=== PATIENT | male | born 1980 | race Caucasian/White ===

== ENCOUNTER 2023-10-13 00:33 | Day surgery (SDC) | payer BC ==
[2023-10-13] MEDS ORDERED: ONDANSETRON 4 MG/2 ML VIAL ONE (01:20)
[2023-10-13] MEDS ORDERED: KETOROLAC 30 MG/ML INJ ONE (01:20)
[2023-10-13] MEDS ORDERED: HALOPERIDOL LACT 5 MG/ML INJ ONE (01:21)
[2023-10-13] MEDS ORDERED: MORPHINE 4 MG/ML SYR ONE (01:21)
[2023-10-13] MEDS ORDERED: FAMOTIDINE 20 MG/2 ML VIAL IV ONE (01:21)
[2023-10-13] MEDS ORDERED: NA CHLORIDE 0.9% 1,000 ML ONE ×2 (01:21→05:01)
[2023-10-13 01:34] LABS: Absolute Basophils 0.1 K/uL (0-0.5); Absolute Lymphocytes (CBC) 1.4 K/uL (0.7-4.9); Absolute Monocytes 1.4 K/uL (0.1-1.3); Absolute Neutrophil 19.3 K/uL (1.8-8.0); Basophils % 0.3 % (0-1.3); Eosinophils % 0.2 % (0-4.4); Hematocrit 44.1 % (39.6-49.0); Hemoglobin 14.9 g/dL (13.6-17.9); Lymphocytes % 6.1 % (15.3-44.8); MCH 31.3 pg (27.0-35.0); MCHC 33.9 g/dL (32.0-36.0); MCV 92.5 fL (80-100); MPV 8.6 fL (7.6-11.3); Monocytes % 6.3 % (3.3-12.3); Neutrophils % 87.1 % (41.7-73.7); Platelets 290 thou/uL (152-406); RBC Red Blood Cell Count 4.77 M/uL (4.33-5.43); Red Cell Distribution Width 14.2 % (12.1-15.2)
[2023-10-13 01:44] LABS: Specific Gravity > 1.030 (1.005-1.030); Sqamous Epithelial <5 /HPF (None Seen); Urine Bacteria <20 /HPF (<20); Urine Bilirubin NEGATIVE (Negative); Urine Blood Negative (Negative); Urine Clarity Turbid (Clear); Urine Color Yellow (Yellow); Urine Culture Reflex Order NOT NEEDED; Urine Glucose NEGATIVE (Negative); Urine Ketones TRACE (Negative); Urine Microscopic Reflex YN ORDER UMIC; Urine Mucus 4+ /HPF (None Seen); Urine Nitrite NEGATIVE (Negative); Urine Protein 1+ (Negative); Urine RBC <5 /HPF (None Seen); Urine Urobilinogen Normal (Normal); Urine WBC <5 /HPF (<5)
[2023-10-13 01:55] LABS: Anion Gap 10.3 mEq/L (5.0-15.0); Globulin 4.1 g/dL (2.3-3.5); Potassium 3.3 mEq/L (3.5-5.1); Protein, Total 8.1 g/dL (6.4-8.2)
[2023-10-13 04:06] LABS: Band Neutrophils 9 % (0-1); Differential Total Cells Count 100; Lymphocytes 9 % (15-42); Monocytes 5 % (0-10); Reactive Lymphocytes 4 %; Segmented Neutrophils 73 % (40-80)
[2023-10-13 04:07] LABS: Blood Morphology Comment NOT SEEN (NOT SEEN); Platelet Estimate ADEQ
[2023-10-13] MEDS ORDERED: NA CHLORIDE 0.9% 50 ML ONE (05:01)
[2023-10-13] MEDS ORDERED: CEFTRIAXONE 1000 MG/VIAL ONE (05:01)
[2023-10-13] MEDS ORDERED: METRONIDAZOLE 500mg IVPB 500 MG/100 ML BAG IV ONE (05:01)
--- NOTE | 2023-10-13 05:14 | EDPHYS ---
Physician Documentation [facility] Name: Grant Johnston Age: 43 yrs Sex: Male : 1980 Arrival Date: 10/13/2023 Time: 00:33 Bed 7 Private MD: ED Physician Tavo Duenas HPI: 10/12 00:56 This 43 yrs old Male presents to ER via Ambulatory with complaints of sp4 Abdominal Pain. 05:05 Patient is 43-year-old male presents with acute right-sided abdominal pain associated sp4 with nausea.. Historical: - Allergies: 00:50 No Known Allergies; lg3 - Home Meds: 00:50 None [Active]; lg3 - PMHx: 00:50 shingles; lg3 - PSHx: 00:50 None; lg3 - Immunization history:: Adult Immunizations up to date. - Infectious Disease History:: Denies. - Social history:: Smoking status: Patient denies any tobacco usage or history of. Patient uses alcohol, only on a social basis. - Family history:: not pertinent. ROS: 05:05 Constitutional: Negative for fever, chills, and weight loss, Eyes: Negative for injury, sp4 pain, redness, and discharge, Abdomen/GI: Positive abdominal pain in the right side and positive nausea 05:05 All other systems are negative, Exam: 05:05 Constitutional: This is a well developed, well nourished patient who is awake, alert, sp4 and in no acute distress. Head/Face: Normocephalic, atraumatic. Eyes: Pupils equal round and reactive to light, extra-ocular motions intact. Lids and lashes normal. Conjunctiva and sclera are not injected. Cornea within normal limits. Periorbital areas with no swelling, redness, or edema. ENT: Nares patent. No nasal discharge, no septal abnormalities noted. Tympanic membranes are normal and external auditory canals are clear. Oropharynx with no redness, swelling, or masses, exudates, or evidence of obstruction, uvula midline. Mucous membranes moist. Neck: Trachea midline, no thyromegaly or masses palpated, and no cervical lymphadenopathy. Supple, full range of motion without nuchal rigidity, or vertebral point tenderness. Chest/axilla: Normal chest wall appearance and motion. Nontender with no deformity. No lesions are appreciated. Cardiovascular: Regular rate and rhythm with a normal S1 and S2. No gallops, murmurs, or rubs. Normal PMI, no JVD. No pulse deficits. Respiratory: Lungs have equal breath sounds bilaterally, clear to auscultation and percussion. No rales, rhonchi or wheezes noted. No increased work of breathing, no retractions or nasal flaring. Abdomen/GI: Soft, with normal bowel sounds. No distension or tympany. Positive guarding positive right abdominal tenderness positive rebound tenderness on exam. Back: No spinal tenderness. No costovertebral tenderness. Skin: Warm, dry with normal turgor. Normal color with no rashes, no lesions, and no evidence of cellulitis. MS/ Extremity: Pulses equal, no cyanosis. Neurovascular intact. Full, normal range of motion. Neuro: Awake and alert, GCS 15, oriented to person, place, time, and situation. Cranial nerves II-XII grossly intact. Motor strength 5/5 in all extremities. Sensory grossly intact. Psych: Awake, alert, with orientation to person, place and time. Behavior, mood, and affect are within normal limits Vital Signs: 00:49 BP 138 / 98; Pulse 81; Resp 17 S; Temp 98.3(O); Pulse Ox 100% on R/A; Weight 90.72 kg lg3 (R); Height 5 ft. 9 in. (R); 02:34 BP 126 / 78; Pulse 79; Pulse Ox 94% on R/A; Pain 4/10; tm6 04:38 Pulse 76; Pulse Ox 93% on R/A; tm6 04:59 BP 124 / 76; Pulse 79; Pulse Ox 94% ; Pain 0/10; tm6 00:49 Body Mass Index 29.53 (90.72 kg, 175.26 cm) lg3 02:34 Pain Scale: Adult tm6 04:59 Pain Scale: Adult tm6 Augusto Coma Score: 05:05 Eye Response: spontaneous(4). Motor Response: obeys commands(6). Verbal Response: sp4 oriented(5). Total: 15. MDM: 03:38 Patient medically screened. sp4 04:53 ED course: EXAM: CT abdomen and pelvis with IV contrast CLINICAL DATA: 43 years Male sp4 ABD PAIN TECHNICAL DATA: Axial CT imaging of the abdomen and pelvis was performed following the administration of intravenous contrast.. Oral contrast was not administered. Sagittal and coronal reconstructed images were then performed. The CT study is performed according to ALARA (as low as reasonably achievable) or ALARA/IMAGE GENTLY, with automatic adjustment of mA and/or kV according to patient size. Performed on: 10/13/2023 at 2:49 AM. Comparison: Abdominal ultrasound performed on 10/13/2023 at 1:19 AM FINDINGS: Lung bases: The lung bases are clear. The heart is normal in size. Liver:The liver is normal in size and configuration. No focal hepatic abnormalities are identified. Liver attenuation is within normal limits. The hepatic and portal veins are patent. Spleen:The spleen is normal in size, configuration and attenuation. Gallbladder and bile duct: The gallbladder is well distended and unremarkable. There is no biliary ductal dilatation. Pancreas: The pancreas is grossly normal in size and configuration. Adrenal Glands:The adrenal glands are normal in size and configuration. Kidneys:The kidneys are normal in size and configuration. There is no evidence of hydronephrosis. There is no evidence of nephrolithiasis. No definite solid or cystic renal mass lesions are identified. Stomach:The stomach is grossly normal. There is no definite hiatal hernia. Bowel:The bowel gas pattern is non specific and non obstructive. Appendix: The appendix is normal. Free air:There is no evidence of free air. Free fluid: There is no evidence of free fluid. Vasculature: The aorta is normal in caliber and contour. The inferior vena cava is grossly unremarkable. Lymphadenopathy: No pathologic lymphadenopathy is identified. Bladder: The bladder is well distended. Reproductive: The prostate gland is grossly within normal limits. Bones: No acute osseous abnormalities are identified. There is mild deformity of the sacrococcygeal junction likely chronic or developmental in nature. Soft tissues: No acute soft tissue abnormalities are identified. There is a small intramuscular lipoma within the posterior lateral left abdominal wall muscles. There is a tiny fat-containing ventral umbilical hernia. IMPRESSION: No evidence of acute intra-abdominal or intrapelvic pathology.. ED course: EXAM: Ultrasound abdomen limited CLINICAL DATA: 43 years Male ABD PAIN TECHNICAL DATA: Limited sonographic imaging of the right upper quadrant was performed on 10/13/2023 at 1:35 AM to further evaluate the gallbladder Comparison: CT abdomen and pelvis performed on 10/13/2023 at 2:46 AM. FINDINGS: The gallbladder is well distended and normal in appearance.There is no evidence of cholelithiasis. The gallbladder wall measures approximately 2 mm in diameter. There is no evidence of pericholecystic fluid. The technologist did not detect a positive Sonographic Banks sign. The common bile duct measures approximately 4 mm in diameter. There is no evidence of biliary ductal dilatation. A cursory evaluation of the portal vein reveals patency of the portal vein the visualized portions of the liver are grossly unremarkable. IMPRESSION: No evidence of acute gallbladder pathology. . 05:05 Differential Diagnosis altered mental status, sepsis, flu, Appendicitis . Data sp4 reviewed: vital signs, nurses notes, lab test result(s), radiologic studies, CT scan, ultrasound. Consideration of Admission/Observation Patient was admitted/placed on observation. Escalation of care including admission/observation considered. Management of patient was discussed with the following: Hospitalist: Chetan Amaral. ED course: Patient warrants admission for management with IV antibiotics also repeat abdominal exam. Although CT is negative but suspect early acute appendicitis.. 05:13 ED course: Sepsis reevaluation. Patient tolerating p.o. fluid and is feeling better.. sp4 10/12 00:56 Order name: CBC with Diff; Complete Time: 04:50 sp4 10/12 00:56 Order name: CMP; Complete Time: 04:50 [facility] 10/12 00:56 Order name: Lipase; Complete Time: 04:50 [facility] 10/12 00:56 Order name: Urinalysis w/ reflexes; Complete Time: 04:50 [facility] 10/12 01:55 Order name: Manual Differential; Complete Time: 04:50 [facility] 10/12 04:57 Order name: Blood Culture Adult (2) sp4 10/12 06:09 Order name: CBC with Automated Diff [facility] 10/12 06:09 Order name: CBC with Automated Diff [facility] 10/12 06:09 Order name: Comprehensive Metabolic Panel [facility] 10/12 06:09 Order name: Comprehensive Metabolic Panel [facility] 10/12 00:56 Order name: Abdomen Limited US sp4 10/12 00:56 Order name: CT Abd/Pelvis - IV Contrast Only sp4 10/12 00:56 Order name: IV Saline Lock; Complete Time: 01:18 sp4 10/12 00:56 Order name: Labs collected and sent; Complete Time: 01:18 sp4 Administered Medications: 01:35 Drug: Haloperidol IVP 2.5 mg/50 mL 2.5 mg IVP once; Place patient on a school lunch monitor tm6 Route: IVP; Site: right antecubital; 01:35 Drug: NS 0.9% IV 1000 ml IV at 1 bolus Per protocol; 1000 mL bolus Route: IV; Rate: 1 tm6 bolus; Site: right antecubital; 05:25 Follow up: IV Status: Completed infusion; IV Intake: 1000ml tm6 01:35 Drug: Famotidine IVP 20 mg IVP once; dilute with 10 mL 0.9% NaCl; give over 2 minutes tm6 Route: IVP; Site: right antecubital; 01:35 Drug: Ondansetron IVP 4 mg IVP once; over 2 minutes Route: IVP; Site: right antecubital;tm6 01:36 Drug: TORadol - Ketorolac IVP 15 mg IVP once Route: IVP; Site: right antecubital; tm6 01:36 Drug: morphine IVP or IV 4 mg IVP once over 4 mins Route: IVP; Infused Over: 4 mins; tm6 Site: right antecubital; 05:25 Drug: Rocephin - Rocephin (cefTRIAXone) IVPB 1 grams IVPB once over 30 mins; (mix in 50 tm6 mL NS) Route: IVPB; Infused Over: 30 mins; Site: right antecubital; 05:44 Follow up: Response: No adverse reaction; IV Status: Completed infusion tm6 05:25 Drug: NS 0.9% IV 1000 ml IV at 125 ml/hr continuous Route: IV; Rate: 125 ml/hr; Site: tm6 right antecubital; 05:44 Drug: metroNIDAZOLE IVPB 500 mg 100 ml IVPB at 200 ml/hr once over 30 mins Volume: 100 tm6 ml; Route: IVPB; Rate: 200 ml/hr; Infused Over: 30 mins; Site: right antecubital; Disposition Summary: 10/13/23 05:13 Hospitalization Ordered Notes: Hospitalization Status: Observation sp4 Provider: Chetan Mckeon spYoselyn Condition: Fair sp4 Problem: new sp4 Symptoms: have improved sp4 Bed/Room Type: Standard sp4 Location: Telemetry/MedSurg (observation)(10/13/23 11:20) jr12 Room Assignment: 209(10/13/23 11:20) jr12 Diagnosis - Lower abdominal pain, unspecified sp4 - Other specified sepsis sp4 Forms: - Medication Reconciliation Form sp4 - SBAR form sp4 - Leadership Thank You Letter sp4 Signatures: Dispatcher [employer] EDMS Ines Kwan RN RN jl7 Camila Hughes RN RN lg3 Tavo Duenas MD MD sp4 Vesna Kaur [facility] Lisbeth Sousa RN RN tm6 Corrections: (The following items were deleted from the chart) 00:51 00:50 PMHx: None; lg3 lg3 00:57 00:57 Abdomen Limited+US.RAD.BRZ ordered. EDMS EDMS 00:57 00:57 Abdomen Pelvis W Con+CT.RAD.BRZ ordered. [facility] EDMS 07:37 05:13 Telemetry/MedSurg (observation) sp4 jl7 07:37 05:13 sp4 jl7 11:20 07:37 [facility] [email or web address]] ER HOLD jl7 jr12 11:20 07:37 ERHOLD- jl7 jr12
--- NOTE | 2023-10-13 05:14 | ER ---
Nurse's Notes [facility] Name: Grant Johnston Age: 43 yrs Sex: Male : 1980 Arrival Date: 10/13/2023 Time: 00:33 Bed 7 Private MD: Diagnosis: Lower abdominal pain, unspecified;Other specified sepsis Presentation: 10/12 00:49 Chief complaint: Patient states: middle abdominal pain radiating upwards X2 hours with lg3 nausea. Coronavirus screen: Client denies travel out of the [place] in the last 14 days. At this time, the client does not indicate any symptoms associated with coronavirus-19. Ebola Screen: No symptoms or risks identified at this time. Initial Sepsis Screen: Does the patient meet any 2 criteria? No. Patient's initial sepsis screen is negative. Does the patient have a suspected source of infection? No. Patient's initial sepsis screen is negative. Risk Assessment: Do you want to hurt yourself or someone else? Patient reports no desire to harm self or others. Onset of symptoms was October 12, 2023. 00:49 Method Of Arrival: Ambulatory lg3 00:49 Acuity: RACQUEL 3 lg3 Triage Assessment: 00:50 General: Appears in no apparent distress. uncomfortable, Behavior is calm, cooperative. lg3 Pain: Complains of pain in abdomen. EENT: No deficits noted. No signs and/or symptoms were reported regarding the EENT system. Neuro: No deficits noted. Martino Agitation-Sedation Scale (RASS): 0 - Alert and Calm Level of Consciousness is awake, alert, obeys commands, Oriented to person, place, time, situation. Cardiovascular: No deficits noted. Denies chest pain, shortness of breath, Capillary refill < 3 seconds Clubbing of nail beds is absent JVD is absent Patient's skin is warm and dry. Respiratory: No deficits noted. Airway is patent Respiratory effort is even, unlabored, Respiratory pattern is regular, symmetrical. GI: Abdomen is round non-distended, Reports upper abdominal pain, cramping, gaseousness, indigestion, nausea. : No deficits noted. No signs and/or symptoms were reported regarding the genitourinary system. Derm: No deficits noted. No signs and/or symptoms reported regarding the dermatologic system. Skin is intact, is healthy with good turgor, Skin is dry, Skin is normal, Skin temperature is warm. Musculoskeletal: No deficits noted. No signs and/or symptoms reported regarding the musculoskeletal system. Circulation, motion, and sensation intact. Range of motion: intact in all extremities. Historical: - Allergies: 00:50 No Known Allergies; lg3 - Home Meds: 00:50 None [Active]; lg3 - PMHx: 00:50 shingles; lg3 - PSHx: 00:50 None; lg3 - Immunization history:: Adult Immunizations up to date. - Infectious Disease History:: Denies. - Social history:: Smoking status: Patient denies any tobacco usage or history of. Patient uses alcohol, only on a social basis. - Family history:: not pertinent. Screenin:36 [facility] ED Fall Risk Assessment (Adult) History of falling in the last 3 months, tm6 including since admission No falls in past 3 months (0 pts) Confusion or Disorientation No (0 pts) Intoxicated or Sedated No (0 pts) Impaired Gait No (0 pts) Mobility Assist Device Used No (0 pt) Altered Elimination No (0 pt) Score/Fall Risk Level 0 - 2 = Low Risk Oriented to surroundings, Maintained a safe environment, Educated pt \T\ family on fall prevention, incl call for assistance when getting out of bed. Abuse screen: Denies threats or abuse. Denies injuries from another. Nutritional screening: No deficits noted. Tuberculosis screening: No symptoms or risk factors identified. Assessment: 01:36 General: Appears uncomfortable, Behavior is calm, cooperative. Pain: Complains of pain tm6 in abdomen Pain does not radiate. Pain currently is 8 out of 10 on a pain scale. at worst was 10 out of 10 on a pain scale. Neuro: Level of Consciousness is awake, alert, obeys commands, Oriented to person, place, time, situation. Cardiovascular: Patient's skin is warm and dry. Rhythm is regular. Respiratory: Airway is patent Respiratory effort is even, unlabored, Respiratory pattern is regular, symmetrical. GI: Abdomen is flat, non-distended, Bowel sounds present X 4 quads. Abdomen is tender to palpation X 4 quads. : No signs and/or symptoms were reported regarding the genitourinary system. EENT: No signs and/or symptoms were reported regarding the EENT system. Derm: No signs and/or symptoms reported regarding the dermatologic system. Musculoskeletal: No signs and/or symptoms reported regarding the musculoskeletal system. 01:36 GI: Reports lower abdominal pain, upper abdominal pain, nausea, Pain is 8 out of 10 on tm6 a pain scale. 02:34 Reassessment: Patient appears in no apparent distress at this time. Patient and/or tm6 family updated on plan of care and expected duration. Pain level reassessed. Patient is alert, oriented x 3, equal unlabored respirations, skin warm/dry/pink. 04:39 Reassessment: Patient appears in no apparent distress at this time. tm6 04:59 Reassessment: Patient appears in no apparent distress at this time. Patient and/or tm6 family updated on plan of care and expected duration. Pain level reassessed. Patient is alert, oriented x 3, equal unlabored respirations, skin warm/dry/pink. Vital Signs: 00:49 BP 138 / 98; Pulse 81; Resp 17 S; Temp 98.3(O); Pulse Ox 100% on R/A; Weight 90.72 kg lg3 (R); Height 5 ft. 9 in. (R); 02:34 BP 126 / 78; Pulse 79; Pulse Ox 94% on R/A; Pain 4/10; tm6 04:38 Pulse 76; Pulse Ox 93% on R/A; tm6 04:59 BP 124 / 76; Pulse 79; Pulse Ox 94% ; Pain 0/10; tm6 00:49 Body Mass Index 29.53 (90.72 kg, 175.26 cm) lg3 02:34 Pain Scale: Adult tm6 04:59 Pain Scale: Adult tm6 Augusto Coma Score: 05:05 Eye Response: spontaneous(4). Motor Response: obeys commands(6). Verbal Response: sp4 oriented(5). Total: 15. ED Course: 00:41 Patient arrived in ED. jj6 00:50 Triage completed. lg3 00:50 Arm band placed on right wrist. lg3 00:55 Tavo Duenas MD is Attending Physician. sp4 01:02 Lisbeth Sousa RN is Primary Nurse. tm6 01:18 CBC with Diff Sent. tm6 01:18 CMP Sent. tm6 01:18 Lipase Sent. tm6 01:18 Urinalysis w/ reflexes Sent. tm6 01:18 Inserted saline lock: 20 gauge in right antecubital area, using aseptic technique. tm6 01:36 Patient has correct armband on for positive identification. Bed in low position. Call tm6 light in reach. Side rails up X 1. Provided Education on: use of call munoz. Client placed on continuous cardiac and pulse oximetry monitoring. NIBP monitoring applied. color television console monitor on. Pulse ox on. NIBP on. Door closed. Noise minimized. Warm blanket given. Pillow given. 01:59 Abdomen Limited US In Process Unspecified. EDMS 02:44 CT Abd/Pelvis - IV Contrast Only In Process Unspecified. EDMS 05:11 Chetan Mckeon MD is Hospitalizing Provider. sp4 05:25 Blood Culture Adult (2) Sent. tm6 08:00 Patient admitted, IV remains in place. aa5 08:00 No provider procedures requiring assistance completed. aa5 Administered Medications: 01:35 Drug: Haloperidol IVP 2.5 mg/50 mL 2.5 mg IVP once; Place patient on a monitoring tech tm6 Route: IVP; Site: right antecubital; 01:35 Drug: NS 0.9% IV 1000 ml IV at 1 bolus Per protocol; 1000 mL bolus Route: IV; Rate: 1 tm6 bolus; Site: right antecubital; 05:25 Follow up: IV Status: Completed infusion; IV Intake: 1000ml tm6 01:35 Drug: Famotidine IVP 20 mg IVP once; dilute with 10 mL 0.9% NaCl; give over 2 minutes tm6 Route: IVP; Site: right antecubital; 01:35 Drug: Ondansetron IVP 4 mg IVP once; over 2 minutes Route: IVP; Site: right antecubital;tm6 01:36 Drug: TORadol - Ketorolac IVP 15 mg IVP once Route: IVP; Site: right antecubital; tm6 01:36 Drug: morphine IVP or IV 4 mg IVP once over 4 mins Route: IVP; Infused Over: 4 mins; tm6 Site: right antecubital; 05:25 Drug: Rocephin - Rocephin (cefTRIAXone) IVPB 1 grams IVPB once over 30 mins; (mix in 50 tm6 mL NS) Route: IVPB; Infused Over: 30 mins; Site: right antecubital; 05:44 Follow up: Response: No adverse reaction; IV Status: Completed infusion tm6 05:25 Drug: NS 0.9% IV 1000 ml IV at 125 ml/hr continuous Route: IV; Rate: 125 ml/hr; Site: tm6 right antecubital; 05:44 Drug: metroNIDAZOLE IVPB 500 mg 100 ml IVPB at 200 ml/hr once over 30 mins Volume: 100 tm6 ml; Route: IVPB; Rate: 200 ml/hr; Infused Over: 30 mins; Site: right antecubital; Medication: 01:36 VIS not applicable for this client. tm6 Intake: 05:25 IV: 1000ml; Total: 1000ml. tm6 Outcome: 05:13 Decision to Hospitalize by Provider. sp4 08:00 Admitted to ER Hold. Please see [facility] for further documentation. aa5 08:00 Condition: stable aa5 08:00 Instructed on the need for admit, 11:59 Patient left the ED. aa5 Signatures: Dispatcher [employer] EDKorina Melgar RN RN aa5 Camila Hughes RN RN lg3 Nereida Mckeon Sergey, MD MD sp4 Lisbeth Sousa RN RN tm6 Corrections: (The following items were deleted from the chart) 00:51 00:50 PMHx: None; lg3 lg3
[2023-10-13] MEDS ORDERED: ONDANSETRON 4 MG/2 ML VIAL IV PRN (06:05)
--- NOTE | 2023-10-13 06:13 | P.HP ---
Certification for Inpatient Patient admitted to: Observation With expected LOS: <2 Midnights Patient will require the following post-hospital care: None Practitioner: I am a practitioner with admitting privileges, knowledge of patient current condition, hospital course, and medical plan of care. Services: Services provided to patient in accordance with Admission requirements found in Title 42 Section 412.3 of the Code of Federal Regulations Patient History Date of Service: 10/13/23 Reason for admission: Abdominal pain History of Present Illness: Patient is 43 years of age started having abdominal pain at 10:30 PM last night in the epigastric down to his left lower quadrant and now is settled down in the right lower quadrant associated with nausea no prior history of abdominal discomfort denies any other past medical history no fever or chills has somewhat improved - Past Medical/Surgical History Past Medical History: Reviewed- Non-Contributory -: Shingles Past Surgical History: Reviewed- Non-Contributory - Social History Smoking Status: Never smoker Review of Systems 10-point ROS is otherwise unremarkable Physical Examination - Vital Signs Temperature: 98.3 F Blood Pressure: 138/98 Pulse: 81 Respirations: 17 Pulse Ox (%): 100 - Physical Exam General: Alert, In no apparent distress, Oriented x3 HEENT: Atraumatic Neck: Supple Respiratory: Clear to auscultation bilaterally Cardiovascular: No edema, Normal S1 S2 Gastrointestinal: Normal bowel sounds, Tenderness (Tenderness in the right lower quadrant) Musculoskeletal: No clubbing, No swelling Integumentary: No rashes, No breakdown Neurological: Normal gait, Normal speech, Normal strength at 5/5 x4 extr - Studies Laboratory Data (last 24 hrs) 10/13/23 10/13/23 01:14 01:14 WBC 22.10 H Hgb 14.9 Hct 44.1 Plt Count 290 Sodium 136 Potassium 3.3 L BUN 15 Creatinine 1.05 Glucose 106 Total Bilirubin 1.0 AST 22 ALT 51 Alkaline Phosphatase 66 Lipase 25 Assessment and Plan - Problems (Diagnosis) (1) Abdominal pain Current Visit: Yes Status: Acute Plan: Is 43 years of age admitted with acute onset of right lower quadrant abdominal pain started 10:30 PM last night associated with nausea to the emergency room physician his CT of the abdomen did not show any evidence of cholecystitis or appendicitis official report available however patient's white count is elevated for past medical history vital signs are all stable labs reviewed mildly hypokalemic plan to admit patient for the possibility of appendicitis start patient on Zosyn IV fluids consult general surgery CT report as per ER FINDINGS: The gallbladder is well distended and normal in appearance.There is no evidence of cholelithiasis. The gallbladder wall measures approximately 2 mm in diameter. There is no evidence of pericholecystic fluid. The technologist did not detect a positive Sonographic Banks sign. The common bile duct measures approximately 4 mm in diameter. There is no evidence of biliary ductal dilatation. A cursory evaluation of the portal vein reveals patency of the portal vein the visualized portions of the liver are grossly unremarkable. IMPRESSION: No evidence of acute gallbladder pathology Qualifiers: Abdominal location: right lower quadrant Qualified Code(s): R10.31 - Right lower quadrant pain Discharge Plan: Home Plan to discharge in: 24 Hours - Advance Directives Does patient have a Living Will: No Does patient have a Durable POA for Healthcare: No
[2023-10-13 07:11] VITALS: BMI 29.5
[2023-10-13] MEDS ORDERED: MORPHINE 4 MG/ML SYR IV PRN (07:14)
[2023-10-13] MEDS ORDERED: D5 0.9 NS 1,000 ML IV ONE (07:32)
[2023-10-13] MEDS ORDERED: PIPERACIL/TAZO 4.5 GM VIAL IV ONE (07:32)
[2023-10-13] MEDS ORDERED: NA CHLORIDE 0.9% 100 ML ONE (07:33)
[2023-10-13] MEDS: PIPER TAZO 4.5 GM in NA CHLORIDE 0.9% 100 ML IV SCH (08:30)
[2023-10-13] MEDS: D5 0.9 NS 1,000 ML IV SCH (08:30)
--- NOTE | 2023-10-13 09:10 | P.PN ---
Date of Service: 10/13/23 Pt to go to OR today with probable discharge this afternoon. <Eva Terrazas - Last Filed: 10/13/23 09:09> Pt seen and examined. He is a 43 yo male who presented with RLQ abdominal pain due to appendicitis. Gen surgery will do appendectomy today. Will likely dc pt later today. <Ramiro Castano - Last Filed: 10/13/23 14:05>
--- NOTE | 2023-10-13 10:16 | RAD REPORT ---
EXAM DESCRIPTION: US - Abdomen Exam Limited - 10/13/2023 1:58 am CLINICAL HISTORY: 43 years Male ABD PAIN TECHNIQUE: Limited sonographic imaging of the right upper quadrant was performed on 10/13/2023 at 1: 35 AM to further evaluate the gallbladder Comparison: CT abdomen and pelvis performed on 10/13/2023 at 2:46 AM. FINDINGS: The gallbladder is well distended and normal in appearance.There is no evidence of choleli thiasis. The gallbladder wall measures approximately 2 mm in diameter. There is no evidence of perich olecystic fluid. The technologist did not detect a positive Sonographic Banks sign. The common bile duct measures approximately 4 mm in diameter. There is no evidence of biliary ductal dilatation. A cursory evaluation of the portal vein reveals patency of the portal vein the visualized portions of the liver are grossly unremarkable. IMPRESSION: No evidence of acute gallbladder pathology. Electronically signed by: Reina Mon DO 10/13/2023 02:59 AM [facility] Due to temporary technical issues with the PACS/Fluency reporting system, reports are being signed by the in house radiologist without review as a courtesy to ensure prompt reporting. The interpreting r adiologist is fully responsible for the content of the report.
--- NOTE | 2023-10-13 10:33 | RAD REPORT ---
EXAM DESCRIPTION: CT - Abdomen Pelvis W Contrast - 10/13/2023 6:35 am CLINICAL HISTORY: 43 years Male ABD PAIN TECHNIQUE: Axial CT imaging of the abdomen and pelvis was performed following the administration of intravenous contrast.. Oral contrast was not administered. Sagittal and coronal reconstructed image s were then performed. The CT study is performed according to ALARA (as low as reasonably achievabl e) or ALARA/IMAGE GENTLY, with automatic adjustment of mA and/or kV according to patient size. Performed on: 10/13/2023 at 2:49 AM. Comparison: Abdominal ultrasound performed on 10/13/2023 at 1:19 AM FINDINGS: Lung bases: The lung bases are clear. The heart is normal in size. Liver: The liver is normal in size and configuration. No focal hepatic abnormalities are identified. Liver attenuation is within normal limits. The hepatic and portal veins are patent. Spleen: The spleen is normal in size, configuration and attenuation. Gallbladder and bile duct: The gallbladder is well distended and unremarkable. There is no biliary ductal dilatation. Pancreas: The pancreas is grossly normal in size and configuration. Adrenal Glands: The adrenal glands are normal in size and configuration. Kidneys: The kidneys are normal in size and configuration. There is no evidence of hydronephrosis. Th ere is no evidence of nephrolithiasis. No definite solid or cystic renal mass lesions are identified. Stomach: The stomach is grossly normal. There is no definite hiatal hernia. Bowel: The bowel gas pattern is non specific and non obstructive. Appendix: The appendix is normal. Free air: There is no evidence of free air. Free fluid: There is no evidence of free fluid. Vasculature: The aorta is normal in caliber and contour. The inferior vena cava is grossly unremarkab le. Lymphadenopathy: No pathologic lymphadenopathy is identified. Bladder: The bladder is well distended. Reproductive: The prostate gland is grossly within normal limits. Bones: No acute osseous abnormalities are identified. There is mild deformity of the sacrococcygeal j unction likely chronic or developmental in nature. Soft tissues: No acute soft tissue abnormalities are identified. There is a small intramuscular lipom a within the posterior lateral left abdominal wall muscles. There is a tiny fat-containing ventral um bilical hernia. IMPRESSION: No evidence of acute intra-abdominal or intrapelvic pathology. Electronically signed by: Reina Mon DO 10/13/2023 03:07 AM [facility] Due to temporary technical issues with the PACS/Fluency reporting system, reports are being signed by the in house radiologist without review as a courtesy to ensure prompt reporting. The interpreting r adiologist is fully responsible for the content of the report.
[2023-10-13] MEDS ORDERED: Ringers Lactate 1,000 ML IV ONE (12:19)
[2023-10-13] MEDS ORDERED: LIDOCAINE 1% MPF 5 ML VIAL ONE (13:10)
[2023-10-13] MEDS ORDERED: ROCURONIUM 50 MG/5 ML VIAL IV ONE (13:11)
[2023-10-13] MEDS ORDERED: propofoL 200 MG/20 ML VIAL IV ONE (13:12)
[2023-10-13] MEDS ORDERED: FENTANYL CITR 100 MCG/2 ML ONE (13:12)
[2023-10-13] MEDS ORDERED: MIDAZOLAM HCL 2 MG/2 ML INJ ONE (13:13)
[2023-10-13] MEDS: LIDOCAINE HCL/EPINEPHRINE 20 ML MDV ONE (13:45)
--- NOTE | 2023-10-13 15:47 | P.OP ---
Preoperative diagnosis: Appendicitis Postoperative diagnosis: Appendicitis Primary procedure: Laparoscopic Appendectomy Anesthesia: GETA + Local Estimated blood loss: <2cc Specimen: Vermiform Appendix Findings: Mild inflammatory changes to appendix Complications: None Transferred to: Recovery Room Condition: Good
[2023-10-13] MEDS: MEPERIDINE HCL 25 MG/ML SYR ONE (15:53)
--- NOTE | 2023-10-13 16:26 | OP ---
Date of Procedure: 10/13/2023 Surgeon: Kishan Delatorre MD, Preoperative Diagnosis: Acute appendicitis. Postoperative Diagnosis: Acute appendicitis. Procedure Performed: Laparoscopic appendectomy. Anesthesia: General endotracheal plus local with 1% lidocaine with epinephrine. Estimated Blood Loss: Less than 2 cc. Specimen: Vermiform appendix. Findings: Mild inflammatory changes to the appendix. Complications: None. Disposition: The patient transferred to recovery room in good condition. Procedure In Detail: After informed consent was obtained, patient was brought to the operating room, prepped and draped in the usual sterile fashion. After adequate anesthesia was achieved, I made an infraumbilical incision down to subcutaneous tissue. A 5 mm 0-degree optical trocar was introduced i n the abdomen without incident or complication. Insufflation was obtained to 15 mmHg, at this time. There was no injury to vital structures. Two additional trocars were placed, one in the supraumbili vadim position which was 5 mm trocar placed under direct visualization without incident or complication , one in the right lower quadrant. Similarly, a 5 mm trocar was placed under direct visualization wi thout incident or complication. The infraumbilical trocar was then upsized to a 12 mm under direct v isualization without incident or complication. Insufflation was obtained and maintained at 15 mmHg, at this time throughout the procedure. I then placed the patient head down right side up position. Ratcheted graspers were used to grasp the patient's appendix. I dissected down to see the confluence of appendix. There was evidence of inflammatory changes and some murky fluid at the base of the neisha endix consistent with an early appendicitis. I then created a mesoappendiceal window with a [place] retractor. Endo-DILSHAD 45 purple load fired across the base of the appendix with good approximation of tissues in the confluence of the cecum. At this point, I used a LigaSure to take down the mesoappen bran without incident or complication. The appendix was placed in the EndoCatch bag, removed through the umbilical trocar site for pathologic examination. The area was copiously irrigated multiple time s, sucked out, completely dry. The patient was positioned back in neutral position. The abdomen was examined at this point. There was mild scar tissue to the sigmoid colon consistent with previous ep isodes of possible inflammatory change, but no active colitis was evident on today's examination as w ell as no additional findings of infection. The gallbladder was inspected. Did not have any evidenc e of inflammatory changes as well. No additional findings grossly were appreciated, at this point. I then sucked out the remaining effluent from the pelvis after the patient was positioned back in maria a tral position. The 12 mm trocar site was then closed using a Joel-Thea suture passer with 0 Vi cryl in an interrupted fashion with good approximation of tissues. The remainder of trocars were rem ludwig after the abdomen was desufflated under direct visualization without incident or complication. All skin incisions were then copiously irrigated and closed with a 4-0 Monocryl in a running fashion. Dermabond was placed over top. The patient tolerated the procedure without incident or complicatio n and transferred to PACU in good condition. All counts were correct at the end of the case. ASHER/ROSELIA Voice ID: [id number] Report ID: [id number]
[2023-10-13] MEDS ORDERED: HYDROCODONE/APAP 5/325 MG TAB ONE (17:30)
[2023-10-13] MEDS: HYDROCODONE/APAP 5/325 MG TAB PO PRN (17:35)
[2023-10-13 17:49] VITALS: BP 129/60; TEMP 97; O2SAT 95
== END 2023-10-13 17:45 | disposition home or self-care (01) ==
LOC: ER 00:33 → ERHOLD 06:05 → DSO 06:05 → UNDOADMOB 06:05 → DSO 16:18 → 2ND 16:18 → ERHOLD 16:18 → 2ND 17:02 → DS 17:40
PROVIDERS: ATTEND Hospitalist
PROC: 0DTJ4ZZ Resection of Appendix, Percutaneous Endoscopic Approach (ICD-10-PCS; principal; 2023-10-13 14:30)
DX: K35.80 Unspecified acute appendicitis (principal); R10.9 Unspecified abdominal pain
CPT/HCPCS: 96365; 96361; 87040 ×2; 85025; 81001; 36415; 83690; 80053; 74177; 76705; 96375; 99285; 44970; Q9967; J2704; J1630; J2001; J2250; J3010; J2175; J2405; J7042; J7120; J7030 ×2; J0696; 88304